=== PATIENT | female | born 1985 | race African-American/Black ===

== ENCOUNTER → 2016-12-18 | Outpatient (CLI) | payer OTHER ==
[2014-11-05 13:48] VITALS: BP 114/69
--- NOTE | 2016-12-18 12:59 | KCIC ---
MR of the right shoulder Indication: Pain and limited range of motion for 2 weeks. Dislocation. Technique: Standard multiplanar sequences are obtained. Findings: Mild motion degradation. Acromioclavicular joint:Intact. Rotator cuff: Mild tendinosis signal. No rotator cuff tear. No significant subdeltoid bursal fluid. Glenohumeral cartilage: No acute defect or advanced DJD. Fluid: No significant joint effusion. Labrum: The anteroinferior labrum is poorly defined, compatible with a tear. There is mild ill-definition of the anteroinferior glenoid, raising the question of an associated very small Bankart fracture. Small Hill-Sachs fracture deformity with marrow contusion at the posterolateral humeral head. Biceps tendon: Intact Bones: No lesion or acute fracture. Soft tissue: No acute findings. Impression:Findings compatible with an anteroinferior labral tear, with Hill-Sachs fracture deformity. There may be a very small Bankart fracture component at the anteroinferior glenoid. Electronically signed by: Sunil Cox MD (12/18/2016 12:55 PM) [id number]
== END | disposition home or self-care (01) ==
LOC: KCIC MRI 09:41
PROVIDERS: ATTEND Orthopaedic Surgery
DX: S42.291A Other displaced fracture of upper end of right humerus, initial encounter for closed fracture (principal); X58.XXXA Exposure to other specified factors, initial encounter; Y93.89 Activity, other specified; Y92.89 Other specified places as the place of occurrence of the external cause; Y99.8 Other external cause status
CPT/HCPCS: 73221

== ENCOUNTER → 2017-09-04 | Outpatient (CLI) | payer OTHER | END | disposition home or self-care (01) | LOC: KCIC CT 14:14 | DX: S43.084D Other dislocation of right shoulder joint, subsequent encounter (principal); X58.XXXD Exposure to other specified factors, subsequent encounter | CPT/HCPCS: 73200 ==

== ENCOUNTER → 2017-09-08 | Outpatient (CLI) | payer OTHER ==
[2017-09-08] MEDS: IOHEXOL 300 MG/ML 50 ML VIAL. INT ART (15:26)
[2017-09-08] MEDS: LIDOCAINE 1% Multi-Dose 20 ML VIAL. ID (15:26)
[2017-09-08] MEDS: GADOBUTROL 7.5 MMOL/7.5 ML VIAL INT ART (15:26)
== END | disposition home or self-care (01) ==
LOC: KCIC 12:39
DX: M25.511 Pain in right shoulder (principal)
CPT/HCPCS: 73040; A9585; Q9967